=== PATIENT | male | born 1995 | race Caucasian/White ===

== ENCOUNTER → 2018-03-01 | Outpatient (CLI) | payer BC ==
[~2018-03-01] MED LIST: FUROSEMIDE INJ 10 MG/ML 4 ML VIAL ONE
--- NOTE | 2018-03-01 21:32 | Diagnostic Imaging Report ---
Renal Scan with Lasix Washout Clinical information: 22 M with right hydronephrosis; Technique: Following intravenous administration of 10 mCi of Tc-99m MAG3, dynamic images of the kidneys in the posterior projection were obtained through 40 minutes. Lasix 40 mg was administered intravenously at 10 minutes post injection of the tracer. Report: Left kidney: Perfusion of the left kidney is prompt. The kidney has a normal reniform shape. Extraction of tracer from the blood pool is normal. Clearance of tracer from the renal parenchyma is prompt. The pelvicalyceal system is not dilated. Physiologic pooling of tracer within the pelvicalyceal system is seen. Drainage of tracer from the pelvicalyceal system is prompt and adequate prior to administration of Lasix. No significant stasis of tracer is seen within the left ureter. Right kidney: Perfusion to the right kidney is prompt. The right kidney is enlarged with marked thinning of the renal cortex. A dilated intrarenal pelvis in the mid aspect of the kidney occupies approximately a third of the half of the kidney. Extraction of tracer by the renal parenchyma is decreased. Clearance of tracer from the renal parenchyma is prolonged. The pelvicalyceal system is markedly dilated, primarily the intrarenal renal pelvis. Increased pooling of tracer is seen within the pelvicalyceal system. No net drainage of tracer from the pelvicalyceal system is seen prior to administration of Lasix. Washout of tracer from the pelvicalyceal system following administration of Lasix is extremely slow with a T-1/2 of >50 minutes (normal less than 15 minutes). No significant stasis of tracer is seen within the right ureter. Differential renal function: The left kidney contributes 76% of total renal function and the right kidney contributes 24% (normal 43-57%). Visually, the differential renal function for the right kidney appears to be about 15%. Impression: 1. The function of the left kidney is generally normal. No hydronephrosis is present. No physiologically significant obstruction of the renal collecting system is present. 2. The right kidney shows evidence of chronic obstructive uropathy. Loss of renal cortex evidenced by the marked thinning of the renal cortex accounts for the differential function of no more than 24% of the total renal function. Marked hydronephrosis is present. Physiologically significant obstruction of the renal collecting system is present. Signed by: Dr. Kia Johnson M.D. on 03/01/2018 9:28 PM
== END ==
LOC: NM 13:41
PROVIDERS: ATTEND Urology
DX: N13.1 Hydronephrosis with ureteral stricture, not elsewhere classified (principal)
CPT/HCPCS: 78708; A9562; J1940

== ENCOUNTER 2018-04-30 10:51 | Inpatient (IN) | payer BC ==
[~2018-04-30] VITALS: Ht 190.5 cm; Wt 143.3 kg
[~2018-04-30 10:51] MED LIST changes: -FUROSEMIDE INJ 10 MG/ML 4 ML VIAL ONE; +IBUPROFEN PO
[2018-04-30] MEDS ORDERED: CEFAZOLIN SOD 1 GM VIAL ONE (11:17)
[2018-04-30 11:53] LABS: BASOPHILS # (AUTO) 0.1 (0.0-0.1); BASOPHILS % 0.8 % (0.0-1.0); EOSINOPHILS # (AUTO) 0.3 (0.0-0.4); EOSINOPHILS % 3.6 % (0.0-6.0); HEMATOCRIT 46.5 % (38.2-49.6); HEMOGLOBIN 15.9 g/dL (14.0-18.0); LYMPHOCYTES % 23.1 % (18.0-39.1); MEAN CORPUSCULAR HEMOGLOBIN 28.4 pg (28-32); MEAN CORPUSCULAR HGB CONC 34.2 g/dL (31-35); MEAN CORPUSCULAR VOLUME 83.2 fL (81-99); MONOCYTES # (AUTO) 0.5 (0.2-0.8); MONOCYTES % 5.5 % (4.4-11.3); NEUTROPHILS # (AUTO) 5.8 (2.1-6.9); NEUTROPHILS % 66.7 % (38.7-80.0); PLATELET COUNT 281 x10e3/uL (140-360); RED BLOOD COUNT 5.59 x10e6/uL (4.3-5.7)
[2018-04-30 12:10] LABS: ALANINE AMINOTRANSFERASE 41 IU/L (0-55); ALBUMIN 3.9 g/dL (3.5-5.0); ALKALINE PHOSPHATASE 95 IU/L (40-150); ANION GAP 14.5 mmol/L (8-16); BLOOD UREA NITROGEN 12 mg/dL (7-26); BUN/CREATININE RATIO 11 (6-25); CALCIUM 9.9 mg/dL (8.4-10.2); CARBON DIOXIDE 23 mmol/L (22-29); CHLORIDE 104 mmol/L (98-107); CREATININE, SERUM 1.06 mg/dL (0.72-1.25); EST GLOMERULAR FILTRATION RATE > 60 ML/MIN (60-); GLUCOSE 110 mg/dL (74-118); POTASSIUM 3.5 mmol/L (3.5-5.1); SODIUM 138 mmol/L (136-145)
[2018-04-30] MEDS ORDERED: IOPAMIDOL 300MG/ML 50ML INFUS..BTL IV ONE (12:27)
[2018-04-30] MEDS ORDERED: MIDAZOLAM HCL 2 MG/2 ML VIAL ONE ×2 (14:51)
[2018-04-30] MEDS ORDERED: MORPHINE SULFATE INJ 10 MG/ML ONE (14:51)
[2018-04-30] MEDS ORDERED: FENTANYL CITRATE/PF 100MCG/2 ML INJ ONE ×3 (14:51→15:56)
[2018-04-30] MEDS ORDERED: NALOXONE HCL INJ 0.4 MG/ML AMP IV PRN (16:00)
[2018-04-30] MEDS ORDERED: DIPHENHYDRAMINE HCL INJ 50 MG/ML VIAL IM PRN (16:00)
[2018-04-30] MEDS ORDERED: ACETAMINOPHEN 1000 MG/100 ML IV PRN (16:00)
[2018-04-30] MEDS ORDERED: MORPHINE SULFATE 1 MG/ML 30ML PCA ONE (16:00)
--- NOTE | 2018-04-30 16:37 | Diagnostic Imaging Report ---
PROCEDURE: A single AP view of the chest. COMPARISON: None. INDICATIONS: RULE OUT PNEUMOTHORAX POST SX FINDINGS: Lines/tubes: Nasogastric in place the tip overlying gastric fundus. Lungs: Limited by low lung volumes and body habitus. No definite focal consolidation. Pleura: There is no pleural effusion or visible pneumothorax. Heart and mediastinum: The heart and the mediastinum are unremarkable. Bones: No acute bony abnormality. IMPRESSION: Limited by body habitus and low lung volumes. No visible pneumothorax. Dictated by: Matheus Flores M.D. on 04/30/2018 at 16:43 Electronically approved by: Matheus Flores M.D. on 04/30/2018 at 16:43
[2018-04-30 17:00] VITALS: BP 117/62
[2018-04-30] MEDS: D5.45%NS/KCL 20MEQ 1,000 ML IV SCH ×2 (17:13→23:50)
[2018-04-30] MEDS: SODIUM CHLORIDE 0.9% 250ML IRRIG IR SCH ×2 (17:14→20:56)
[2018-04-30 17:38] VITALS: BP 117/62
[2018-04-30] MEDS ORDERED: MAGNESIUM SULF 1GRAM/DEXTROSE 100 ML IV ONE (18:30)
[2018-04-30 19:45] VITALS: BP 118/69
[2018-04-30 20:00] VITALS: BP 118/69
[2018-04-30] MEDS: CEFAZOLIN SOD 1 GM VIAL IV SCH (20:56)
[2018-04-30] MEDS: ONDANSETRON HCL INJ 2 MG/ML VIAL IV PRN (21:10)
[2018-04-30] MEDS ORDERED: CEFAZOLIN SOD 1 GM/D5W 50ML 50 ML IV SCH (22:00)
[2018-04-30] MEDS: PROMETHAZINE 25MG/ NS 50ML (IV) IV PRN (23:55)
[2018-05-01] VITALS (9 sets, daily range): BP systolic 108–149; BP diastolic 53–78
[2018-05-01] MEDS: SODIUM CHLORIDE 0.9% 250ML IRRIG IR SCH ×4 (01:23→12:00)
[2018-05-01 04:38] LABS: BASOPHILS % 0.1 % (0.0-1.0); EOSINOPHILS % 0.1 % (0.0-6.0); HEMATOCRIT 40.4 % (38.2-49.6); HEMOGLOBIN 13.6 g/dL (14.0-18.0); LYMPHOCYTES # (AUTO) 1.2 (1.0-3.2); MEAN CORPUSCULAR HEMOGLOBIN 28.6 pg (28-32); MEAN CORPUSCULAR HGB CONC 33.7 g/dL (31-35); MEAN CORPUSCULAR VOLUME 85.1 fL (81-99); MONOCYTES # (AUTO) 1.1 (0.2-0.8); MONOCYTES % 7.1 % (4.4-11.3); NEUTROPHILS # (AUTO) 12.5 (2.1-6.9); NEUTROPHILS % 84.4 % (38.7-80.0); PLATELET COUNT 264 x10e3/uL (140-360); RED BLOOD COUNT 4.75 x10e6/uL (4.3-5.7); RED CELL DISTRIBUTION WIDTH 12.2 % (11.7-14.4)
[2018-05-01 05:03] LABS: ANION GAP 13.4 mmol/L (8-16); BLOOD UREA NITROGEN 10 mg/dL (7-26); BUN/CREATININE RATIO 8 (6-25); CALCIUM 9.1 mg/dL (8.4-10.2); CARBON DIOXIDE 26 mmol/L (22-29); CHLORIDE 104 mmol/L (98-107); CREATININE, SERUM 1.22 mg/dL (0.72-1.25); EST GLOMERULAR FILTRATION RATE > 60 ML/MIN (60-); GLUCOSE 143 mg/dL (74-118); MAGNESIUM 1.8 MG/DL (1.3-2.1); POTASSIUM 4.4 mmol/L (3.5-5.1); SODIUM 139 mmol/L (136-145)
[2018-05-01] MEDS: CEFAZOLIN SOD 1 GM VIAL IV SCH ×3 (05:34→22:07)
[2018-05-01] MEDS: MORPHINE SULFATE 1 MG/ML 30ML PCA IV PRN ×2 (06:27→17:43)
[2018-05-01] MEDS: PROMETHAZINE 25MG/ NS 50ML (IV) IV PRN ×2 (07:32→19:30)
[2018-05-01] MEDS: D5.45%NS/KCL 20MEQ 1,000 ML IV SCH ×2 (08:31→15:39)
--- NOTE | 2018-05-01 09:16 | History and Physical ---
PCP: Dr. Ac Calhoun CONSULTANTS: Dr. Angel Michael The patient is status post right nephrectomy. 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 The patient is status post cystoscopy, retrograde pyelogram and right nephrectomy. The patient postoperatively with nausea and vomiting. He remained with NG tube in place. The patient is in pain. He is on a FLOOR TECHNICIAN pump at this time. Patient is otherwise clinically stable on postoperative care. PAST MEDICAL HISTORY: Right obstructive atrophic kidney. PAST SURGICAL HISTORY: EGD and colonoscopy. SOCIAL HISTORY: The patient does not smoke or use alcohol. No recreational drugs. ALLERGIES: NO KNOWN ALLERGIES. HOME MEDICATIONS: None. REVIEW OF SYSTEMS: As mentioned. Nausea and vomiting. NG tube. Abdominal pain and on pain control FLOOR TECHNICIAN pump. PHYSICAL EXAMINATION VITAL SIGNS: Temperature is 98, blood pressure 126/63, pulse rate 81, respirations are 20. GENERAL: The patient is not in acute distress. He is awake. HEENT: Normocephalic, atraumatic and anicteric. NECK: Supple grossly. PULMONARY: Diminished breath sounds bilaterally. CARDIOVASCULAR: S1 and S2. Regular rate and rhythm. ABDOMEN: Postoperative right nephrectomy. Generalized discomfort. Diminished bowel sounds. NEUROLOGIC: No focal deficit. LABORATORY: Sodium is 139, potassium 4.4, chloride 104, bicarb 26, BUN 10, creatinine 1.2, glucose 143. WBC is 14.7, hemoglobin 13.6, hematocrit 40.4, and platelets 264,000. IMPRESSION 1. Status post right nephrectomy. 2. Intractable nausea and vomiting persistent post right nephrectomy. 3. Slight leukocytosis. 4. Postoperative pain. PLAN: Continue with FLOOR TECHNICIAN pump pain control. Antiemetics. Supportive measures. IV fluids. NG tube. Job#: [id number] NH
[2018-05-01] MEDS ORDERED: LIDOCAINE HCL 2% LOCAL INJ 5 ML SDV VIAL INJ ONE (14:11)
[2018-05-01] MEDS ORDERED: GLYCOPYRROLATE INJ 0.2 MG/ML VIAL IV ONE (14:11)
[2018-05-01] MEDS ORDERED: ACETAMINOPHEN 1000 MG/100 ML IV ONE (14:11)
[2018-05-01] MEDS ORDERED: ROCURONIUM BROMIDE 10 MG/ML 5ML VIAL IV ONE (14:11)
[2018-05-01] MEDS ORDERED: LIDOCAINE HCL 2% JELLY 5 ML TUBE TOP ONE (14:11)
[2018-05-01] MEDS ORDERED: ONDANSETRON HCL INJ 2 MG/ML VIAL IV ONE (14:11)
[2018-05-01] MEDS ORDERED: SEVOFLURANE INHAL SOLN 250 ML PEN BTL INH ONE (14:11)
[2018-05-01] MEDS ORDERED: DEXAMETHASONE SOD PHOS INJ 4 MG/ML VIAL IV ONE (14:11)
[2018-05-01] MEDS ORDERED: PROPOFOL IV EMULSION 10 MG/ML 20 ML VIAL IV ONE (14:11)
[2018-05-01] MEDS ORDERED: NEOSTIGMINE 5 MG/5ML SYR IV ONE (14:11)
[2018-05-02] MEDS: PROMETHAZINE 25MG/ NS 50ML (IV) IV PRN (03:59)
[2018-05-02 04:00] VITALS: BP 127/58
[2018-05-02 05:46] LABS: BASOPHILS # (AUTO) 0.1 (0.0-0.1); BASOPHILS % 0.6 % (0.0-1.0); EOSINOPHILS # (AUTO) 0.1 (0.0-0.4); EOSINOPHILS % 1.4 % (0.0-6.0); HEMATOCRIT 38.8 % (38.2-49.6); HEMOGLOBIN 12.8 g/dL (14.0-18.0); LYMPHOCYTES # (AUTO) 2.3 (1.0-3.2); LYMPHOCYTES % 23.4 % (18.0-39.1); MEAN CORPUSCULAR HEMOGLOBIN 28.7 pg (28-32); MONOCYTES # (AUTO) 0.7 (0.2-0.8); MONOCYTES % 6.6 % (4.4-11.3); NEUTROPHILS # (AUTO) 6.7 (2.1-6.9); NEUTROPHILS % 67.4 % (38.7-80.0); PLATELET COUNT 220 x10e3/uL (140-360); RED BLOOD COUNT 4.46 x10e6/uL (4.3-5.7); RED CELL DISTRIBUTION WIDTH 12.4 % (11.7-14.4)
[2018-05-02] MEDS: CEFAZOLIN SOD 1 GM VIAL IV SCH ×3 (05:58→22:00)
[2018-05-02 06:15] LABS: ANION GAP 12.7 mmol/L (8-16); BLOOD UREA NITROGEN 8 mg/dL (7-26); BUN/CREATININE RATIO 7 (6-25); CARBON DIOXIDE 25 mmol/L (22-29); CHLORIDE 103 mmol/L (98-107); CREATININE, SERUM 1.12 mg/dL (0.72-1.25); EST GLOMERULAR FILTRATION RATE > 60 ML/MIN (60-); GLUCOSE 98 mg/dL (74-118); POTASSIUM 3.7 mmol/L (3.5-5.1); SODIUM 137 mmol/L (136-145)
[2018-05-02 06:28] LABS: MAGNESIUM 1.5 MG/DL (1.3-2.1); PHOSPHORUS 2.2 MG/DL (2.3-4.7)
[2018-05-02] MEDS: D5.45%NS/KCL 20MEQ 1,000 ML IV SCH ×3 (07:50→19:40)
[2018-05-02 08:09] VITALS: BP 138/59
[2018-05-02 08:41] VITALS: BP 138/59
[2018-05-02] MEDS ORDERED: MORPHINE SULFATE 5 MG/ML VIAL IV PRN (08:45)
[2018-05-02] MEDS ORDERED: MORPHINE SULFATE INJ 4 MG/ML INJ IV PRN (08:45)
[2018-05-02] MEDS: MORPHINE SULFATE 2 MG/ML SYR IV PRN (12:14)
[2018-05-02] MEDS: ONDANSETRON HCL INJ 2 MG/ML VIAL IV PRN (12:14)
[2018-05-02 12:23] VITALS: BP 138/73
[2018-05-02] MEDS ORDERED: BISACODYL 10 MG SUPP PR NR ×3 (13:00→20:00)
[2018-05-02 16:37] VITALS: BP 135/65
[2018-05-02] MEDS: DOCUSATE SODIUM 100 MG CAP PO SCH (17:15)
[2018-05-02] MEDS: ACETAMINOPHEN/CODEINE 300MG - 30MG TAB PO PRN ×2 (17:15→21:50)
[2018-05-02 20:00] VITALS: BP_SYST 133; BP_SYST 138; BP_DIAS 64
[2018-05-03] VITALS: BP 133/64
[2018-05-03] MEDS: ACETAMINOPHEN/CODEINE 300MG - 30MG TAB PO PRN ×3 (01:44→14:45)
[2018-05-03] MEDS ORDERED: BISACODYL 10 MG SUPP PR ONE (02:00)
[2018-05-03 04:00] VITALS: BP 124/67
[2018-05-03 05:17] LABS: BASOPHILS # (AUTO) 0.1 (0.0-0.1); BASOPHILS % 0.7 % (0.0-1.0); EOSINOPHILS # (AUTO) 0.3 (0.0-0.4); EOSINOPHILS % 2.8 % (0.0-6.0); HEMATOCRIT 41.7 % (38.2-49.6); HEMOGLOBIN 14.1 g/dL (14.0-18.0); LYMPHOCYTES # (AUTO) 2.8 (1.0-3.2); LYMPHOCYTES % 26.1 % (18.0-39.1); MEAN CORPUSCULAR HEMOGLOBIN 28.7 pg (28-32); MEAN CORPUSCULAR HGB CONC 33.8 g/dL (31-35); MEAN CORPUSCULAR VOLUME 84.9 fL (81-99); MONOCYTES # (AUTO) 0.8 (0.2-0.8); MONOCYTES % 7.5 % (4.4-11.3); NEUTROPHILS # (AUTO) 6.7 (2.1-6.9); NEUTROPHILS % 62.2 % (38.7-80.0); PLATELET COUNT 268 x10e3/uL (140-360); RED BLOOD COUNT 4.91 x10e6/uL (4.3-5.7)
[2018-05-03] MEDS: MORPHINE SULFATE 2 MG/ML SYR IV PRN (05:20)
[2018-05-03] MEDS: CEFAZOLIN SOD 1 GM VIAL IV SCH (05:28)
[2018-05-03 05:44] LABS: ANION GAP 16.9 mmol/L (8-16); BLOOD UREA NITROGEN 10 mg/dL (7-26); BUN/CREATININE RATIO 9 (6-25); CALCIUM 9.9 mg/dL (8.4-10.2); CARBON DIOXIDE 22 mmol/L (22-29); CHLORIDE 103 mmol/L (98-107); CREATININE, SERUM 1.13 mg/dL (0.72-1.25); EST GLOMERULAR FILTRATION RATE > 60 ML/MIN (60-); GLUCOSE 101 mg/dL (74-118); POTASSIUM 3.9 mmol/L (3.5-5.1); SODIUM 138 mmol/L (136-145)
[2018-05-03 08:20] VITALS: BP 118/64
[2018-05-03] MEDS ORDERED: ONDANSETRON HCL 4 MG ORAL DISINTEGRATING TAB PO PRN (08:45)
[2018-05-03 08:48] VITALS: BP 118/64
[2018-05-03] MEDS: DOCUSATE SODIUM 100 MG CAP PO SCH (08:48)
[2018-05-03] MEDS ORDERED: TYLENOL WITH C1 EACH PO (14:03)
[2018-05-03] MEDS ORDERED: COLACE100 MG PO (14:04)
[2018-05-03 14:08] VITALS: BP 135/70
[2018-05-03 16:16] VITALS: BP 128/76
--- NOTE | 2018-06-15 18:10 | Discharge Summary ---
FINAL DIAGNOSES 1. Status post right nephrectomy. 2. Postoperative nausea and vomiting. 3. Postoperative pain. SUMMARY: The patient is a pleasant 22-year-old male with status post right nephrectomy. The patient was postoperatively in ICU, subsequently transferred out of the ICU. He has nausea and vomiting postoperatively most likely from pain medication and anesthesia. The patient's symptoms improved. His pain has better management. FOREIGN DIPLOMAT pump discontinued. The patient was stable. He was subsequently discharged home, to follow up with Dr. Angel Michael as an outpatient. The patient was stable on discharge. No further workup needed. He was comfortable and stable postoperative care, much improved on his discharge date. Job#: [id number] LPA
--- NOTE | 2018-06-26 15:17 | Operative Report ---
DATE OF PROCEDURE: April 30, 2018 PREOPERATIVE DIAGNOSES: 1. Atrophic right kidney. 2. Urinary tract infections. POSTOPERATIVE DIAGNOSES: 1. Atrophic right kidney. 1. Urinary tract infections. PROCEDURES PERFORMED: 1. Cystourethroscopy with bilateral ureteral catheterization and retrograde ureteropyelography (separate procedure performed for the urinary tract infections). 2. Interpretation of retrograde ureteropyelography. 3. Supervision of fluoroscopy, no radiologist present. 4. Complicated right nephrectomy, made complicated by the reaction around the patient's kidney and the difficulty in extracting it. JOURNEYMAN CARPENTER: Dr. Boo Michael. COMPLICATIONS: None. CLINICAL SUMMARY: Jono Smith is a 22-year-old man with an atrophic nonfunctional right kidney that is severely hydronephrotic. We presumed this is due to a burned-out ureteropelvic junction that was previously unrecognized and unmanaged. The patient understands the risks, benefits and alternatives of various treatment options and elected to proceed with nephrectomy as planned. He is aware of the risks of bleeding, infection, injury to adjacent structures, need for additional procedures and elected to proceed. OPERATIVE PROCEDURE IN DETAIL: Informed consent was verified. Jono Smith was properly identified, taken to the operating room and placed on the cystoscopy table in the supine position, and anesthesia was uneventfully begun. The patient was then carefully and gently repositioned in the dorsal lithotomy position with all pressure points well padded. His genitalia were prepared and draped in the usual sterile fashion. The 22.5-Tamazight cystoscope sheath with the visual obturator in place was atraumatically inserted in the patient's urethra. It was guided down the unremarkable distal urethra past a normal sphincteric region through the normal prostate bed into the normal bladder where panendoscopy revealed no suspicious mucosal lesions, no tumors, no stones and no diverticula. Normally positioned and configured ureteral orifices were identified. A ureteral catheter was then used to cannulate the left ureter, and retrograde ureteropyelograms were performed. It was then inserted in the right ureter, and retrograde ureteropyelograms were performed. Interpretation of retrograde ureteropyelography: Contrast was instilled in a retrograde fashion bilaterally. The left side was unremarkable. There were no tumors, no stones and no diverticula. The calices were sharp and delicate. Unobstructed drainage was observed fluoroscopically. The right ureter was unremarkable. The right ureteropelvic junction caused an obstruction, and there was a severely hydronephrotic blown-out right-sided kidney with caliceal blunting. A Harrison catheter was placed. The patient was then transported to the open operating room where he was carefully repositioned in the operating table in the flank position with all pressure points carefully well padded. His chest, abdomen and back were prepared and draped in the usual sterile fashion. A right flank incision was made and carried through all layers of the abdominal and chest wall. We isolated the kidney. Kidney was very large, very hydronephrotic. There was a reaction around the kidney, and it was rather stuck. We carefully and gently dissected, taking care not to injure any of the surrounding tissues. Eventually we were able to fully isolate the kidney. We controlled the artery by doubly ligating the kidney with silk and hemoclips. We then doubly ligated the renal vein with silk and hemoclips. Following division of the vasculature and ligation and division of the ureter, the specimen was removed from the field. Copious irrigation was performed. The patient's incision was then approximated with heavy Vicryl suture in an interrupted figure-of-8 fashion. The skin was approximated with skin junior. Sterile dressings were applied, and the patient was uneventfully reversed from anesthesia and taken to the recovery room in stable condition. There no complications to the procedure. Patient tolerated the procedure well. Sponge, needle and instrument count was grossly correct x2 at the end of the case. We will proceed with routine postoperative care and ongoing urological followup for a solitary kidney. Job#: [id number] EV
--- OUTSIDE RECORDS SUMMARY | 2018-06-27 23:44 | XMS REPORT ---
Author Author [facility] Address Unknown Phone Unavailable Care Team Providers Care Steam Drier Operator Name Role Phone JUANI HWANG Unavailable Unavailable Problems This patient has no known problems. Allergies, Adverse Reactions, Alerts This patient has no known allergies or adverse reactions. Medications This patient has no known medications. Results Test Description Test Time Test Comments Text Results Atomic Results Result Comments CHEST SINGLE (PORTABLE) 2018-04-30 16:43:00 [place] [address] Patient Name: CARMEN MART MR #: [id number] : 1995 Age/Sex : 22/M Req #: [id number] Adm Physician: JUANI HWANG MD Ordered by: JUANI HWANG MD Report #: [id number] Location: PACU Room/Bed: [facility]- Procedure: [id number] DX/CHEST SINGLE (PORTABLE ) Exam Date: 04/30/18 Exam Time: 1610 REPORT STATUS: Signed PROCEDURE: A single AP view of the chest. COMPARISON: None. INDICATIONS: RULE OUT PNEUMOTHORAX POST SX FINDINGS: Lines/tubes: Nasogastric in place the tip overlying gastric fundus. Lungs : Limited by low lung volumes and body habitus. No definite focal consolidation. Pleura: There is no pleural effusion or visible pneumothorax. Heart and mediastinum: The heart and the mediastinum are unremarkable. Bones: No acute bony abnormality. IMPRESSION: Limited by body habitus and low lung volumes. No visible pneumothorax. Dictated by: Matheus Bell M.D. on 04/30/2018 at 16:43 Electronically approved by: Matheus Bell M.D. on 04/30/2018 at 16:43 Dictated By: MATHEUS BELL MD 42 Transcribed By: NAHUM on 04/30/181642 COPY TO: JUANI HWANG MD RENAL SCAN W/LASIX 2018-03-01 21:14:00 [place] [address] Patient Name: CARMEN MART MR #: [id number] : 1995 Age/Sex: 22/M Req #: [id number] Adm Physician: Ordered by: JUANI HWANG MD Report #: [id number] Location: [place] Room/Bed: Procedure: [id number] NM/RENAL SCAN W/LASIX Exam Date: 03/01/18 Exam Time: 1400 REPORT STATUS: Signed Renal Scan with Lasix Washout Clinical information: 22 M with right hydronephrosis; Technique: Following intravenous administration of 10 mCi of Tc-99m MAG3, dynamic images of the kidneys in the posterior projection were obtained through 40 minutes. Lasix 40 mg was administered intravenously at 10 minutes post injection of the tracer. Report: Left kidney: Perfusion of the left kidney is prompt. The kidney has a normal reniform shape. Extraction of tracer from the blood pool is normal. Clearance of tracer from the renal parenchyma is prompt. The pelvicalyceal system is not dilated. Physiologic pooling of tracer within the pelvicalyceal system is seen. Drainage of tracer from the pelvicalyceal system is prompt and adequate prior to administration of Lasix. No significant stasis of tracer is seen within the left ureter. Right kidney: Perfusion to the right kidney is prompt. The right kidney is enlarged with marked thinning of the renal cortex. A dilated intrarenal pelvis in the mid aspect of the kidney occupies approximately a third of the half of the kidney. Extraction of tracer by the renal parenchyma is decreased. Clearance of tracer from the renal parenchyma is prolonged. The pelvicalyceal system is markedly dilated, primarily the intrarenal renal pelvis. Increased pooling of tracer is seen within the pelvicalyceal system. No net drainage of tracer from the pelvicalyceal system is seen prior to administration of Lasix. Washout of tracer from the pelvicalyceal system following administration of Lasix is extremely slow with a T-1/2 of >50 minutes (normal less than 15 minutes). No significant stasis of tracer is seen within the right ureter. Differential renal function: The left kidney contributes 76% of total renal function and the right kidney contributes 24% (normal 43-57%). Visually, the differential renal function for the right kidney appears to be about 15%. Impression: 1. The function of the left kidney is generally normal. No hydronephrosis is present. No physiologically significant obstruction of the renal collecting system is present. 2. The right kidney shows evidence of chronic obstructive uropathy. Loss of renal cortex evidenced by the marked thinning of the renal cortex accounts for the differential function of no more than 24 % of the total renal function. Marked hydronephrosis is present. Physiologically significant obstruction of the renal collecting system is present. Signed by: Dr. Ying Johnson M.D. on 03/01/2018 9:28 PM Dictated By: YING JOHNSON MD 27 COPY TO: JUANI HWANG MD
== END 2018-05-03 17:03 | disposition home or self-care (01) | DRG 661 ==
LOC: OR 10:51 → PACU V 15:52 → MED/SURG 16:40
PROVIDERS: ADMIT Internal Medicine; ATTEND Internal Medicine
PROC: 0TT00ZZ Resection of Right Kidney, Open Approach (ICD-10-PCS; principal; 2018-04-30 13:00)
DX: N26.1 Atrophy of kidney (terminal) (principal); N13.0 Hydronephrosis with ureteropelvic junction obstruction; Z87.440 Personal history of urinary (tract) infections; R11.2 Nausea with vomiting, unspecified; D72.829 Elevated white blood cell count, unspecified; E83.42 Hypomagnesemia
CPT/HCPCS: 36415; 71045; 74420; 80048; 80053; 83735; 84100; 85025; 86850; 86900; 86920; 88307; 96361; J0690; J1100; J2001; J2250; J2270; J2405; J2550; J3475

== ENCOUNTER 2018-05-05 11:59 | Emergency (ER) | payer BC ==
[~2018-05-05] VITALS: Ht 190.5 cm; Wt 141.5 kg
[~2018-05-05 11:59] MED LIST changes: +COLACE100 MG PO; +TYLENOL WITH C1 EACH PO
[2018-05-05] MEDS ORDERED: SODIUM CHLORIDE 0.9% 1000ML 1,000 ML IV STA (12:19)
[2018-05-05] MEDS ORDERED: ONDANSETRON HCL INJ 2 MG/ML VIAL IV STA (12:19)
[2018-05-05 12:47] LABS: BASOPHILS # (AUTO) 0.1 (0.0-0.1); BASOPHILS % 0.6 % (0.0-1.0); EOSINOPHILS # (AUTO) 0.3 (0.0-0.4); EOSINOPHILS % 2.5 % (0.0-6.0); HEMATOCRIT 45.4 % (38.2-49.6); HEMOGLOBIN 15.7 g/dL (14.0-18.0); LYMPHOCYTES % 20.2 % (18.0-39.1); MEAN CORPUSCULAR HEMOGLOBIN 28.2 pg (28-32); MEAN CORPUSCULAR HGB CONC 34.6 g/dL (31-35); MEAN CORPUSCULAR VOLUME 81.7 fL (81-99); MONOCYTES # (AUTO) 0.7 (0.2-0.8); MONOCYTES % 7.3 % (4.4-11.3); NEUTROPHILS # (AUTO) 6.9 (2.1-6.9); NEUTROPHILS % 68.7 % (38.7-80.0); PLATELET COUNT 364 x10e3/uL (140-360); RED BLOOD COUNT 5.56 x10e6/uL (4.3-5.7); RED CELL DISTRIBUTION WIDTH 11.9 % (11.7-14.4)
[2018-05-05 12:53] LABS: CLARITY,URINE HAZY (CLEAR); COLOR,URINE ORANGE (YELLOW); LEUKOCYTE ESTERASE ,URINE NEGATIVE (NEGATIVE); NITRITE,URINE NEGATIVE (NEGATIVE); PROTEIN,URINE DIPSTICK 1+ (NEGATIVE)
[2018-05-05 12:54] LABS: BILIRUBIN,URINE 2+ (NEGATIVE); KETONES,URINE 2+ (NEGATIVE); URINE UROBILINOGEN 1 mg/dL (0.2 - 1)
[2018-05-05 13:06] LABS: WBC,URINE (MAN) 0-5 /HPF (0-5)
[2018-05-05 13:06] LABS: ALANINE AMINOTRANSFERASE 26 IU/L (0-55); ALBUMIN 3.6 g/dL (3.5-5.0); ALBUMIN/GLOBULIN RATIO 0.7 (0.8-2.0); ALKALINE PHOSPHATASE 81 IU/L (40-150); AMYLASE 34 U/L (25-125); ANION GAP 21.9 mmol/L (8-16); BLOOD UREA NITROGEN 21 mg/dL (7-26); BUN/CREATININE RATIO 18 (6-25); CALCIUM 10.7 mg/dL (8.4-10.2); CARBON DIOXIDE 22 mmol/L (22-29); CHLORIDE 98 mmol/L (98-107); CREATININE, SERUM 1.16 mg/dL (0.72-1.25); EST GLOMERULAR FILTRATION RATE > 60 ML/MIN (60-); GLUCOSE 92 mg/dL (74-118); LIPASE 18 U/L (8-78); POTASSIUM 3.9 mmol/L (3.5-5.1); SODIUM 138 mmol/L (136-145)
[2018-05-05 13:07] LABS: BACTERIA,URINE FEW /HPF; EPITHELIAL CELLS,URINE RARE /LPF; MUCUS,URINE FEW (RARE)
[2018-05-05] MEDS ORDERED: LACTULOSE SYRUP 20 GM/30 ML UDC PO ONE (13:30)
== END 2018-05-05 16:42 | disposition home or self-care (01) ==
LOC: ER 11:59
DX: R10.84 Generalized abdominal pain (principal); R11.2 Nausea with vomiting, unspecified; K59.00 Constipation, unspecified
CPT/HCPCS: 36415; 80053; 81001; 82150; 83605; 83690; 85025; 99284; J2405; J7030